=== PATIENT | male | born 1995 | race African-American/Black ===

== ENCOUNTER 2017-12-27 13:33 | Emergency (ER) | payer OTHER ==
[~2017-12-27] VITALS: Ht 177.8 cm; Wt 90.7 kg
[2017-12-27 14:07] VITALS: BP 118/76
--- NOTE | 2017-12-27 14:09 | Emergency Room Report ---
History of Present Illness General Chief Complaint: Abdominal Pain Source: Patient Present Illness HPI 22 yo male patient presents to ER complaining of upper abdominal pain and chest pain x1day. Reports pain began following one episode of vomiting yesterday. Denies blood in emesis. Denies vomiting since that time. Denies hx of GERD or acid reflux. Reports pain reproducible on palpation. Denies diarrhea. Denies dysuria, hematuria. Denies fever, shortness of breath. Denies other aggravating or relieving symptoms. Denies recent travel. Cesilia contacts with similar symptoms. Reports hx of smoking marijuana. Denies cough, neck pain. Allergies: Coded Allergies: No Known Allergies (Unverified , 12/27/17) Patient History Past Medical History: see triage record Reviewed Nursing Documentation: PMH: Agreed; PSxH: Agreed Nursing Documentation-PMH Past Medical History: No Stated History Review of Systems All Other Systems: negative except mentioned in HPI Physical Exam Vital Signs Date Time Temp Pulse Resp B/P (MAP) Pulse Ox O2 Delivery O2 Flow Rate FiO2 12/27/17 13:42 98.1 82 19 118/76 94 Room Air 98.1 Sp02 EP Interpretation: reviewed, normal General Appearance: well appearing, no apparent distress, alert, GCS 15, non- toxic Head: normocephalic, atraumatic Eyes: bilateral eye normal inspection, bilateral eye PERRL ENT: hearing grossly normal, normal pharynx, no angioedema, normal voice, uvula midline, moist mucus membranes Neck: full range of motion Respiratory: lungs clear, normal breath sounds, no rhonchi, no respiratory distress, no accessory muscle use, no wheezing, speaking full sentences, other - chest TTP on lower left side of anterior ribs Cardiovascular #1: regular rate, rhythm, no edema Gastrointestinal: non tender, soft, no mass, non-distended, no guarding, no rebound, other - negative Rovsing, Negative Miranda sign, Negative TTP at McBurney's point Musculoskeletal: back normal, digits/nails normal, gait/station normal, normal range of motion, non-tender Neurologic: alert, oriented x3, responsive, motor strength/tone normal, sensory intact Psychiatric: mood/affect normal Skin: no rash Lymphatic: no adenopathy Medical Decision Making PA Attestation Dr. Gamble is my supervising Physician whom patient management has been discussed with. Diagnostic Impression: Primary Impression: Vomiting Additional Impression: Rib pain on left side ER Course Pt. presents to the ED c/o vomiting. Ddx considered but are not limited to gastritis, viral syndrome, food poisoning , pancreatitis, GERD. Will order labs to check. No Abdominal TTP on distraction. Does not require imaging at this time. TTP on left lower chest, likely musculoskeletal in nature, possible costochondritis. Order EKG and CXR to rule out underlying etiology. Does not require cardiology labs at this time. Informed patient of likely etiology, take Tylenol for pain symptoms. Vital signs: are WNL, pt. is afebrile ED INTERVENTIONS: CBC and CMP unremarkable Lipase WNL UA negative for nitrites, UTI unlikely EKG no ST elevation, no arrhythmia CXR negative for acute disease Vomiting possibly related to smoking marijuana. Do not smoke marijuana. Avoid spicy foods, avoid dairy. Patient OK for outpatient followup with primary care provider and referral to GI as needed. Discuss treatment and management at that time. Discuss evaluation for GERD. Patient reports feeling better following administration of medication. Able to tolerate PO liquids. DISCHARGE At this time pt is stable for d/c to home. Patient is resting comfortably, in no acute distress, nontoxic appearing, talking without difficulty. Patient to take medications as instructed Will provide with patient care instructions and any necessary prescriptions. Care plan and follow-up instructions provided. Patient instructed to follow-up with primary care provider in 3 - 5 days. Patient questions asked and answered. Patient reports understanding and agreement to treatment plan.ER precautions given. Patient instructed to return to ER immediately for any new or worsening of symptoms including but not limited to increasing SOB, persistent fever, intractable vomiting. Labs Test 12/27/17 14:30 White Blood Count 4.7 K/UL (4.8-10.8) Red Blood Count 4.39 M/UL (4.70-6.10) Hemoglobin 14.0 G/DL (14.2-18.0) Hematocrit 41.1 % (42.0-52.0) Mean Corpuscular Volume 93 FL (80-99) Mean Corpuscular Hemoglobin 31.9 PG (27.0-31.0) Mean Corpuscular Hemoglobin Concent 34.2 G/DL (32.0-36.0) Red Cell Distribution Width 11.2 % (11.6-14.8) Platelet Count 175 K/UL (150-450) Mean Platelet Volume 8.4 FL (6.5-10.1) Neutrophils (%) (Auto) 65.9 % (45.0-75.0) Lymphocytes (%) (Auto) 21.7 % (20.0-45.0) Monocytes (%) (Auto) 10.3 % (1.0-10.0) Eosinophils (%) (Auto) 0.7 % (0.0-3.0) Basophils (%) (Auto) 1.4 % (0.0-2.0) Urine Color Yellow Urine Appearance Clear Urine pH 7 (4.5-8.0) Urine Specific [place] 1.010 (1.005-1.035) Urine Protein 2+ (NEGATIVE) Urine Glucose (UA) Negative (NEGATIVE) Urine Ketones 2+ (NEGATIVE) Urine Occult Blood Negative (NEGATIVE) Urine Nitrite Negative (NEGATIVE) Urine Bilirubin 1+ (NEGATIVE) Urine Ictotest Negative Urine Urobilinogen 4 MG/DL (0.0-1.0) Urine Leukocyte Esterase 2+ (NEGATIVE) Urine RBC 0-2 /HPF (0 - 0) Urine WBC 2-4 /HPF (0 - 0) Urine Squamous Epithelial Cells Occasional /LPF Urine Bacteria Occasional /HPF (NONE) Urine Mucus Many /LPF (NONE/OCC) Sodium Level 140 MMOL/L (136-145) Potassium Level 3.6 MMOL/L (3.5-5.1) Chloride Level 104 MMOL/L (98-107) Carbon Dioxide Level 29 MMOL/L (21-32) Anion Gap 7 mmol/L (5-15) Blood Urea Nitrogen 11 mg/dL (7-18) Creatinine 0.9 MG/DL (0.55-1.30) Estimat Glomerular Filtration Rate > 60 mL/min (>60) Glucose Level 99 MG/DL (74-106) Calcium Level 8.9 MG/DL (8.5-10.1) Total Bilirubin 0.5 MG/DL (0.2-1.0) Aspartate Amino Transf (AST/SGOT) 19 U/L (15-37) Alanine Aminotransferase (ALT/SGPT) 20 U/L (12-78) Alkaline Phosphatase 79 U/L (46-116) Total Protein 7.5 G/DL (6.4-8.2) Albumin 4.3 G/DL (3.4-5.0) Globulin 3.2 g/dL Albumin/Globulin Ratio 1.3 (1.0-2.7) Lipase 74 U/L (73-393) EKG Diagnostic Results Rate: normal Rhythm: NSR ST Segments: no acute changes ASA given to the pt in ED: No PA Scribe Text Devante Collins PA-C Rhythm Strip Diag. Results EP Interpretation: yes Rate: 60 Rhythm: NSR PA Scribe Text Devante Collins PA-C Chest X-Ray Diagnostic Results Chest X-Ray Diagnostic Results : Chest X-Ray Ordered: Yes # of Views/Limited/Complete: 1 View Indication: Chest Pain EP Interpretation: Yes PA Xray: Interpretation reviewed, by supervising MD, and agrees with findings. Interpretation: no consolidation, no effusion, no pneumothorax Impression: No acute disease PA Scribe Kee Collins PA-C Last Vital Signs Date Time Temp Pulse Resp B/P (MAP) Pulse Ox O2 Delivery O2 Flow Rate FiO2 12/27/17 13:42 98.1 82 19 118/76 94 Room Air 98.1 Disposition: HOME, SELF-CARE Condition: Stable Scripts Acetaminophen* (TYLENOL EXTRA STRENGTH*) 500 Mg Tablet 500 MG ORAL Q8H PRN for Prn Headache/Temp > 101, #30 TAB 0 Refills Prov: Kamerno Collins 12/27/17 Patient Instructions: Costochondritis, [id number], Nausea and Vomiting, Adult , [id number] Additional Instructions: Followup with primary care provider in 3 -5 days. Do not smoke marijuana. Take medications as directed. Tylenol for pain symptoms. Patient questions asked and answered. ER precautions given, patient instructed to return to ER immediately for any new or worsening of symptoms. Kameron Collins Dec 27, 2017 14:09
[2017-12-27] MEDS ORDERED: Dicyclomine HCl 10mg/5ml oral soln ORAL ONE (14:15)
[2017-12-27] MEDS ORDERED: Mylanta II UD 30ml ORAL ONE (14:15)
[2017-12-27] MEDS ORDERED: Lidocaine 2% Visc 15ml soln ORAL ONE (14:15)
[2017-12-27 14:48] LABS: APPEARANCE,URINE CLEAR; BILIRUBIN, URINE 1+ (NEGATIVE); GLUCOSE, URINE (UA) NEGATIVE (NEGATIVE); KETONES,URINE 2+ (NEGATIVE); LEUKOCYTE ESTERASE ,URINE 2+ (NEGATIVE); NITRITE,URINE NEGATIVE (NEGATIVE); PH,URINE 7 (4.5-8.0); PROTEIN,URINE 2+ (NEGATIVE); UROBILINOGEN,URINE 4 MG/DL (0.0-1.0)
[2017-12-27 14:49] LABS: BASOPHILS % (AUTO) 1.4 % (0.0-2.0); EOSINOPHILS % (AUTO) 0.7 % (0.0-3.0); HEMATOCRIT 41.1 % (42.0-52.0); LYMPHOCYTES % (AUTO) 21.7 % (20.0-45.0); MEAN CORPUSCULAR VOLUME 93 FL (80-99); MONOCYTES % (AUTO) 10.3 % (1.0-10.0); NEUTROPHILS % (AUTO) 65.9 % (45.0-75.0); PLATELET COUNT 175 K/UL (150-450); RED BLOOD COUNT 4.39 M/UL (4.70-6.10); RED CELL DISTRIBUTION WIDTH 11.2 % (11.6-14.8); WHITE BLOOD COUNT 4.7 K/UL (4.8-10.8)
[2017-12-27 14:56] LABS: COLOR,URINE YELLOW
[2017-12-27 14:58] LABS: ANION GAP 7 mmol/L (5-15); BLOOD UREA NITROGEN 11 mg/dL (7-18); CALCIUM 8.9 MG/DL (8.5-10.1); CARBON DIOXIDE 29 MMOL/L (21-32); CHLORIDE 104 MMOL/L (98-107); CREATININE 0.9 MG/DL (0.55-1.30); POTASSIUM 3.6 MMOL/L (3.5-5.1); SODIUM 140 MMOL/L (136-145)
[2017-12-27 15:02] LABS: ALANINE AMINOTRANSFERASE 20 U/L (12-78); ALBUMIN 4.3 G/DL (3.4-5.0); ALBUMIN/GLOBULIN RATIO 1.3 (1.0-2.7); ALKALINE PHOSPHATASE 79 U/L (46-116); ASPARTATE AMINO TRANSFERASE 19 U/L (15-37); BILIRUBIN,TOTAL 0.5 MG/DL (0.2-1.0)
[2017-12-27] MEDS ORDERED: TYLENOL EXTRA500 MG ORAL (15:12)
--- NOTE | 2017-12-27 15:13 | Diagnostic Imaging Report ---
Indication: Chest pain Technique: One view of the chest Comparison: none Findings: Lungs and pleural spaces are clear. Heart size is normal. Impression: No acute process
[2017-12-27 15:17] VITALS: BP 110/72
--- NOTE | 2017-12-28 16:37 | Cardiology Report ---
APPROVED REPORT EKG Measurement Heart [id number] Normal sinus rhythm Normal ECG
== END 2017-12-27 15:17 | disposition home or self-care (01) ==
LOC: EMR 14:22
DX: R11.10 Vomiting, unspecified (principal); R07.81 Pleurodynia
CPT/HCPCS: 36415; 71045; 80053; 81003; 83690; 85025; 93005; 99283